=== PATIENT | female | born 1945 | race Caucasian/White ===

== ENCOUNTER 2017-03-17 09:52 | Outpatient (CLI) | payer MEDICARE, OTHER ==
[2017-03-17 10:20] LABS: #Basophils 0.1 thou/uL (0.0-0.2); #Eosinphils 0.1 thou/uL (0.0-0.7); #Lymphocytes 1.3 thou/uL (1.20-3.40); #Monocytes 0.5 thou/uL (0.11-0.59); #Neutrophils 3.2 thou/uL (1.40-6.50); %Basophils 1.1 % (0.0-1.0); %Eosinophils 1.8 % (0.0-10.0); %Lymphocytes 24.8 % (21.0-51.0); %Monocytes 9.5 % (0.0-10.0); Hematocrit 43.9 % (36.0-47.0); Mean Platelet Volume 9.5 fL (7.4-10.4); Red Blood Cell (RBC) Count 4.76 mill/uL (4.20-5.40); White Blood Cell (WBC) Count 5.1 thou/uL (4.8-10.8)
[2017-03-17 10:33] LABS: ALT (SGPT) 30 U/L (8-55); AST (SGOT) 27 U/L (5-34); Alkaline Phosphatase 65 U/L (40-150); Anion Gap 16 mmol/L (10-20); BUN (Urea Nitrogen) 19 mg/dL (9.8-20.1); Bilirubin, Total 0.7 mg/dL (0.2-1.2); CK (CPK) 102 U/L (29-168); Calc. Creatinine Clearance 0 mL/min (70-130); Calcium 9.1 mg/dL (7.8-10.44); Carbon Dioxide 21 mmol/L (23-31); Chloride 107 mmol/L (98-107); Estimated GFR-MDRD 69; Globulin 2.7 g/dL (2.4-3.5); Protein, Total 6.9 g/dL (6.0-8.3)
[2017-03-17 10:39] LABS: Troponin I Less than 0.010 ng/mL (< 0.028)
--- NOTE | 2017-03-17 12:44 | RAD ---
CHEST TWO VIEWS: History: Chest pain. Comparison: None. FINDINGS: Lungs are clear. No pneumothorax or effusion. Cardiac silhouette and mediastinal contours are within normal limits. IMPRESSION: No acute intrathoracic abnormality. POS: [facility]
--- NOTE | 2017-03-17 12:49 | RAD ---
RIGHT SCAPULA TWO VIEWS: History: N25.509, R07.9. Comparison: None. FINDINGS: No fracture. No malalignment. Coracoid process is unremarkable. IMPRESSION: Normal exam. POS: [facility]
--- NOTE | 2017-03-17 13:23 | RAD ---
RIGHT SHOULDER THREE VIEWS: History: M25.5, R07.9 Comparison: None. FINDINGS: No fracture or malalignment. Minimal narrowing of the acromioclavicular joint. Ribs are unremarkable. IMPRESSION: Normal exam. POS: [facility]
== END 2017-03-17 09:53 | disposition home or self-care (01) ==
LOC: SCSRAD 09:52
PROVIDERS: ATTEND Internal Medicine
DX: M25.511 Pain in right shoulder (principal); R07.9 Chest pain, unspecified
CPT/HCPCS: 36415; 71020; 80053; 82550; 82553; 84484; 85025

== ENCOUNTER 2018-02-07 10:12 | Outpatient (CLI) | payer MEDICARE | END 2018-02-07 10:13 | disposition home or self-care (01) | LOC: BICMAMMO 10:12 | PROVIDERS: ATTEND Internal Medicine | DX: Z12.31 Encounter for screening mammogram for malignant neoplasm of breast (principal) | CPT/HCPCS: 77063; 77067 ==

== ENCOUNTER 2018-12-30 09:26 | Outpatient (CLI) | payer MEDICARE ==
--- NOTE | 2018-12-30 10:12 | ULT ---
Gallbladder ultrasound: Multiple grayscale images of right upper quadrant obtained according to protocol. INDICATION: Pain FINDINGS: Liver: Hepatic steatosis. Gallbladder: Normal Gallbladder wall: Normal. Lee's Sign: Negative Common bile duct is normal. Ascites: None IMPRESSION: No acute gallbladder disease is evident sonographically. Hepatic steatosis.
== END 2018-12-30 09:27 | disposition home or self-care (01) ==
LOC: ULT 09:26
PROVIDERS: ATTEND Family Medicine
DX: R10.9 Unspecified abdominal pain (principal); K76.0 Fatty (change of) liver, not elsewhere classified
CPT/HCPCS: 76705

== ENCOUNTER 2019-02-08 12:43 | Outpatient (CLI) | payer MEDICARE ==
--- NOTE | 2019-02-08 13:18 | MMO ---
Bilateral MAMMO Bilat Screen [facility]. CLINICAL HISTORY: Patient is 73 years old and is seen for screening. The patient has no personal history of cancer. The patient has a history of bilateral Excisional Biopsy in 1989. VIEWS: The views performed were: bilateral craniocaudal with tomosynthesis and bilateral mediolateral oblique with tomosynthesis. FILMS COMPARED: The present examination has been compared to prior imaging studies performed at [facility] on 01/31/2015, 02/03/2016, 02/04/2017 and 02/07/2018. This study has been interpreted with the assistance of computer-aided detection. MAMMOGRAM FINDINGS: The breasts are heterogeneously dense, which could obscure a lesion on mammography. There are no suspicious masses, calcifications or areas of architectural distortion. There are benign appearing calcifications in both breasts. There are no suspicious masses, suspicious calcifications, or new areas of architectural distortion. IMPRESSION: THERE IS NO MAMMOGRAPHIC EVIDENCE OF MALIGNANCY. A ROUTINE FOLLOW-UP MAMMOGRAM IN 1 YEAR IS RECOMMENDED. THE RESULTS OF THIS EXAM WERE SENT TO THE PATIENT. ACR BI-RADS Category 2 - Benign finding MAMMOGRAPHY NOTE: 1. A negative mammogram report should not delay a biopsy if a dominant of clinically suspicious mass is present. 2. Approximately 10% to 15% of breast cancers are not detected by mammography. 3. Adenosis and dense breasts may obscure an underlying neoplasm. Reported by: UNRULY GARDNER MD Electonically Signed: [id number]
--- NOTE | 2019-02-08 13:48 | BD ---
Exam: DEXA Bone Density 02/08/19 COMPARISON: None. HISTORY: 73-year-old postmenopausal female for screening. FINDINGS: Lumbar Spine: BMD (g/cm2) T-SCORE L1 0.779 -1.9 L2 0.968 -0.5 L3 1.147 0.6 L4 1.128 0.6 L1-L4 1.003 -0.4 Left Femoral Neck: 0.565 -2.6 Total Proximal Femur: 0.687 -2.1 Impression: Osteoporosis. POS: [facility]
== END 2019-02-08 12:44 | disposition home or self-care (01) ==
LOC: BICMAMMO 12:43
PROVIDERS: ATTEND Internal Medicine
DX: Z12.31 Encounter for screening mammogram for malignant neoplasm of breast (principal); M81.0 Age-related osteoporosis without current pathological fracture
CPT/HCPCS: 77063; 77067; 77080

== ENCOUNTER 2020-02-13 11:10 | Outpatient (CLI) | payer MEDICARE ==
--- NOTE | 2020-02-13 11:43 | MMO ---
Bilateral MAMMO Bilat Screen [facility]. CLINICAL HISTORY: Patient is 74 years old and is seen for screening. The patient has no personal history of cancer. The patient has a history of bilateral Excisional Biopsy in 1989. VIEWS: The views performed were: bilateral craniocaudal with tomosynthesis and bilateral mediolateral oblique with tomosynthesis. FILMS COMPARED: The present examination has been compared to prior imaging studies performed at [facility] on 02/03/2016, 02/04/2017, 02/07/2018 and 02/08/2019. This study has been interpreted with the assistance of computer-aided detection. MAMMOGRAM FINDINGS: The breasts are heterogeneously dense, which could obscure a lesion on mammography. There are stable benign appearing calcifications seen in both breasts. There are no suspicious masses, suspicious calcifications, or new areas of architectural distortion. IMPRESSION: THERE IS NO MAMMOGRAPHIC EVIDENCE OF MALIGNANCY. A ROUTINE FOLLOW-UP MAMMOGRAM IN 1 YEAR IS RECOMMENDED. THE RESULTS OF THIS EXAM WERE SENT TO THE PATIENT. ACR BI-RADS Category 2 - Benign finding MAMMOGRAPHY NOTE: 1. A negative mammogram report should not delay a biopsy if a dominant of clinically suspicious mass is present. 2. Approximately 10% to 15% of breast cancers are not detected by mammography. 3. Adenosis and dense breasts may obscure an underlying neoplasm. Reported by: AKILA QUEEN MD Electonically Signed: [id number]
== END 2020-02-13 11:11 | disposition home or self-care (01) ==
LOC: BICMAMMO 11:10
PROVIDERS: ATTEND Internal Medicine
DX: Z12.31 Encounter for screening mammogram for malignant neoplasm of breast (principal); Z91.89 Other specified personal risk factors, not elsewhere classified
CPT/HCPCS: 77063; 77067

== ENCOUNTER 2021-02-25 13:18 | Outpatient (CLI) | payer MEDICARE | END 2021-02-25 13:19 | disposition home or self-care (01) | LOC: BICMAMMO 13:18 | PROVIDERS: ATTEND Internal Medicine | DX: Z12.31 Encounter for screening mammogram for malignant neoplasm of breast (principal) | CPT/HCPCS: 77063; 77067 ==

== ENCOUNTER 2022-04-13 11:32 | Outpatient (CLI) | payer MEDICARE | END 2022-04-13 11:33 | disposition home or self-care (01) | LOC: BICMAMMO 11:32 | PROVIDERS: ATTEND Internal Medicine | DX: Z12.31 Encounter for screening mammogram for malignant neoplasm of breast (principal); R92.1 Mammographic calcification found on diagnostic imaging of breast; Z86.018 Personal history of other benign neoplasm | CPT/HCPCS: 77063; 77067 ==

== ENCOUNTER 2023-05-20 09:37 | Outpatient (CLI) | payer MEDICARE | END 2023-05-20 09:38 | disposition home or self-care (01) | LOC: BICMAMMO 09:37 | PROVIDERS: ATTEND Internal Medicine | DX: Z12.31 Encounter for screening mammogram for malignant neoplasm of breast (principal); M81.0 Age-related osteoporosis without current pathological fracture; M85.88 Other specified disorders of bone density and structure, other site | CPT/HCPCS: 77063; 77067; 77080 ==

== ENCOUNTER 2024-05-22 08:30 | Outpatient (CLI) | payer MEDICARE | END 2024-05-22 08:31 | disposition home or self-care (01) | LOC: BICMAMMO 08:30 | PROVIDERS: ATTEND Internal Medicine | DX: Z12.31 Encounter for screening mammogram for malignant neoplasm of breast (principal) | CPT/HCPCS: 77063; 77067 ==